=== PATIENT | male | born 1985 | race Caucasian/White ===

== ENCOUNTER 2023-06-07 17:49 | Emergency (ER) | payer MEDICAID ==
[~2023-06-07] VITALS: Ht 185.4 cm; Wt 77.5 kg
[2023-06-07 18:05] VITALS: BP 121/79; PULSE 66; RESP 18; TEMP 97.9; O2SAT 100
[2023-06-07] MEDS ORDERED: PRED20TA PO (19:54)
== END 2023-06-07 20:36 | disposition home or self-care (01) ==
LOC: ER 17:50
DX: M25.531 Pain in right wrist (principal); M79.89 Other specified soft tissue disorders
CPT/HCPCS: 99283

== ENCOUNTER 2023-06-09 10:06 | Emergency (ER) | payer MEDICAID, OTHER ==
[~2023-06-09] VITALS: Ht 188 cm; Wt 74.8 kg
[~2023-06-09 10:06] MED LIST: PRED20TA PO
[2023-06-09] MEDS ORDERED: normal saline 1000ML IV soln IVB ONE (11:15)
[2023-06-09] MEDS ORDERED: pantoprazole 40mg IV 80 MG in normal saline 100ml IV soln 100 ML IV ONE (11:20)
[2023-06-09] MEDS ORDERED: iohexol 300mg/ml 100ml inj. ONE (11:39)
[2023-06-09] MEDS ORDERED: pantoprazole 40 MG vial IV ONE (11:55)
[2023-06-09 12:10] LABS: BASOPHILS # (AUTO) 0.1 X10'3 (0-0.2); BASOPHILS % (AUTO) 1.1 % (0-1); EOSINOPHILS # (AUTO) 0.2 X10'3 (0-0.9); EOSINOPHILS % (AUTO) 1.9 % (0-6); HEMATOCRIT 40.4 % (42.0-52.0); LYMPHOCYTES # (AUTO) 2.1 X10'3 (1.1-4.8); LYMPHOCYTES % (AUTO) 20.5 % (21-51); MEAN CORPUSCULAR HEMOGLOBIN 32.4 PG (27.0-31.0); MEAN CORPUSCULAR HGB CONC 34.8 g/dL (33.0-36.5); MEAN CORPUSCULAR VOLUME 93.3 FL (78-98); MEAN PLATELET VOLUME 7.9 FL (7.4-10.4); MONOCYTES # (AUTO) 0.7 X10'3 (0-0.9); MONOCYTES % (AUTO) 6.8 % (2-12); NEUTROPHILS # (AUTO) 7.3 X10'3 (1.8-7.7); NEUTROPHILS % (AUTO) 69.7 % (42-75); PLATELET COUNT 462 X10'3 (140-440); RED BLOOD COUNT 4.33 X10'6 (4.70-6.10); RED CELL DISTRIBUTION WIDTH 13.5 % (11.5-14.5); WHITE BLOOD COUNT 10.4 X10'3 (4.5-11.0)
[2023-06-09 12:16] LABS: ALANINE AMINOTRANSFERASE 40 U/L (12-78); ALBUMIN 4.1 G/DL (3.4-5.0); ALBUMIN/GLOBULIN RATIO 1.2 (1.1-1.5); ALKALINE PHOSPHATASE 66 IU/L (46-116); ANION GAP 7 (8-16); ASPARTATE AMINO TRANSFERASE 28 U/L (10-37); BILIRUBIN,TOTAL 0.6 MG/DL (0.1-1.0); BLOOD UREA NITROGEN 19 MG/DL (7-18); BUN/CREATININE RATIO 26.4 (10.0-20.0); CALCIUM 9.6 MG/DL (8.5-10.1); CHLORIDE 100 MMOL/L (99-107); CREATININE 0.72 MG/DL (0.60-1.10); GLUCOSE 97 MG/DL (70-104); POTASSIUM 4.2 MMOL/L (3.5-5.1); SODIUM 136 MMOL/L (135-145); TOTAL CARBON DIOXIDE 28.8 MMOL/L (24-32); TOTAL PROTEIN 7.4 G/DL (6.4-8.2); eCRCL 149 ML/MIN; eGFR > 90 ML/MIN
[2023-06-09 12:20] LABS: LIPASE 54 U/L (16-77)
[2023-06-09] MEDS ORDERED: iohexol 350MG/ML 100ml bottle IV ONE (14:42)
[2023-06-09 16:15] LABS: URINE AMPHETAMINE SCREEN POSITIVE (Neg); URINE BARBITUATE SCREEN NEGATIVE (Neg); URINE BENZODIAZEPINES SCREEN NEGATIVE (Neg); URINE CANNABINOID SCREEN POSITIVE (Neg); URINE COCAINE SCREEN NEGATIVE (Neg); URINE METHADONE SCREEN NEGATIVE (Neg); URINE OPIATE SCREEN NEGATIVE (Neg); URINE PHENCYCLIDINE SCREEN NEGATIVE (Neg)
[2023-06-09 16:32] LABS: BILIRUBIN,URINE NEGATIVE (Neg); CLARITY,URINE CLEAR (Clear); COLOR,URINE YELLOW (Yellow); GLUCOSE, URINE NEGATIVE (Neg); KETONES,URINE 15 mg/dl (Neg); LEUKOCYTE ESTERASE ,URINE NEGATIVE (Neg); NITRITES, URINE NEGATIVE (Neg); OCCULT BLOOD,URINE NEGATIVE (Neg); PROTEIN,URINE NEGATIVE (Neg); UROBILINOGEN,URINE 0.2 E.U/dL (0.2-1.0)
[2023-06-09 16:40] LABS: UA COLLECTION TYPE CLN CATCH MIDSTREAM
[2023-06-09 18:37] VITALS: BP 105/59; PULSE 68; RESP 16; TEMP 97.4; O2SAT 98
== END 2023-06-09 18:39 | disposition home or self-care (01) ==
LOC: ER 10:06
DX: K92.1 Melena (principal)
CPT/HCPCS: 36415; 71045; 74177; 80053; 80305; 81003; 83690; 84484; 85025; 93005; 96361; 96374; 99285; C9113; J3490; J7030; Q9967